=== PATIENT | male | born 1990 | race African-American/Black ===

== ENCOUNTER 2019-07-05 08:20 | Emergency (ER) | payer OTHER ==
[~2019-07-05] VITALS: Ht 185.4 cm; Wt 115.7 kg
== END 2019-07-05 09:39 | disposition home or self-care (01) ==
LOC: FSED 08:20
DX: R50.9 Fever, unspecified (principal); R05 Cough; J11.1 Influenza due to unidentified influenza virus with other respiratory manifestations; J40 Bronchitis, not specified as acute or chronic
CPT/HCPCS: 83518; 87400; 99283